=== PATIENT | female | born 1995 | race Caucasian/White ===

== ENCOUNTER 2021-11-23 22:34 | Emergency (ER) | payer MEDICAID ==
[~2021-11-23] VITALS: Ht 165.1 cm; Wt 83.0 kg
[2021-11-24] MEDS ORDERED: ONDANSETRON 4MG ODT PO ONE (01:00)
[2021-11-24 01:01] LABS: BASOPHILS % 0.4 % (0.0-2.0); EOSINOPHILS % 1.6 % (0.0-5.0); HEMATOCRIT. 35.5 % (36.0-48.0); HEMOGLOBIN. 11.4 g/dL (12.0-16.0); LYMPHOCYTES % 38.5 % (20.0-50.0); MEAN CORPUSCULAR HEMOGLOBIN 23.3 pg (28.0-32.0); MEAN CORPUSCULAR VOLUME 72.2 fL (81.0-99.0); MEAN PLATELET VOLUME 6.6 fl (7.4-10.4); NEUTROPHILS % 53.5 % (40.0-76.0); PLATELET 388 x1000/uL (130-400); RED BLOOD CELL COUNT 4.91 mill/uL (4.2-5.4); RED CELL DISTRIBUTION WIDTH 16.9 % (11.6-14.6)
[2021-11-24 01:15] LABS: HCG SCREEN NEGATIVE
[2021-11-24 01:49] LABS: CHLORIDE 109 mEq/L (98-107)
[2021-11-24 02:29] LABS: D-DIMER 0.28 mg/L FEU (<0.50); PARTIAL THROMBOPLASTIN TIME 27.1 sec (23.4-31.0); PROTHROMBIN TIME 10.4 sec (9.6-11.0)
[2021-11-24 03:00] VITALS: BP 120/84
== END 2021-11-24 04:00 | disposition home or self-care (01) ==
LOC: ER 22:34
DX: R06.02 Shortness of breath (principal); I45.2 Bifascicular block; F17.210 Nicotine dependence, cigarettes, uncomplicated; Z71.6 Tobacco abuse counseling
CPT/HCPCS: 36415; 71045; 80053; 84484; 84703; 85025; 85379; 85610; 85730; 93005; 99285; 99406; Q0162